=== PATIENT | male | born 1955 | race Caucasian/White ===

== ENCOUNTER 2020-12-03 18:18 | Observation (INO) ==
[2020-12-03] MEDS ORDERED: Aspirin 325 MG TABLET PO ONE (18:32)
[2020-12-03 18:48] LABS: Basophils # 0.1 K/mcL (0.0-0.2); Basophils % 0.7 %; Eosinophils # 0.4 K/mcL (0.0-0.6); Eosinophils % 3.4 %; Hematocrit 53.1 % (37.5-50.1); Hemoglobin 17.7 g/dL (12.9-16.9); Immature Granulocytes % 0.5 % (0-4); Lymphocytes # 3.5 K/mcL (0.6-4.6); Lymphocytes % 30.2 %; Mean Corpuscular HGB Conc 33.3 g/dL (31.6-35.5); Mean Corpuscular Hemoglobin 29.4 pg (28.0-33.3); Mean Corpuscular Volume 88.1 fL (83.0-100.0); Mean Platelet Volume 10.3 fL (9.4-12.4); Monocytes % 8.8 %; Neutrophils # 6.5 K/mcL (1.6-8.9); Platelet Count 256 K/mcL (140-400); Red Blood Count 6.03 M/mcL (4.19-5.50); Segmented Neutrophils % 56.4 %; White Blood Count 11.5 K/mcL (4.3-11.1)
[2020-12-03 18:49] LABS: INR 1.1; Prothrombin Time 12.2 Seconds (9.4-12.1)
[2020-12-03] MEDS ORDERED: Isovue-370 500 ML BOTTLE IVP ONE ×2 (18:49)
[2020-12-03 19:03] LABS: Alanine Aminotransferase 21 Units/L (7-52); Albumin 4.4 g/dL (3.5-5.7); Albumin/Globulin Ratio 1.3 (1.1-2.2); Alkaline Phosphatase 66 Units/L (34-104); Aspartate Amino Transferase 20 Units/L (13-39); BUN/Creatinine Ratio 18 (6-26); Bilirubin,Total 0.4 mg/dL (0.3-1.0); Blood Urea Nitrogen 21 mg/dL (8-23); Calcium 9.2 mg/dL (8.6-10.3); Carbon Dioxide 28 mEq/L (23-29); Chloride 103 mEq/L (98-107); Globulin 3.5 g/dL (2.4-3.5); Glucose 99 mg/dL (70-105); Osmolality,Calculated 289 (280-300); Potassium 4.3 mEq/L (3.5-5.1); Sodium 138 mEq/L (136-145); Total Protein 7.9 g/dL (6.4-8.9); Troponin I < 0.03 ng/mL (< 0.04); eGFR For African Americans > 60 (> 60); eGFR For Non-African Americans > 60 (> 60)
[2020-12-03] MEDS ORDERED: Perflutren Lipid Microsphere 1.3 ML in 0.9 % Sodium Chloride 8.7 ML IVP PRN (23:21)
[2020-12-03] MEDS ORDERED: *HR* Labetalol 20 MG/4 ML SYRINGE IVP ONE (23:25)
[2020-12-03] MEDS ORDERED: Acetaminophen 325 MG TABLET PO PRN (23:33)
[2020-12-03] MEDS ORDERED: Ondansetron 4 MG/2 ML VIAL IVP PRN (23:33)
[2020-12-03] MEDS ORDERED: Naloxone 0.4 MG/ML INJ IVP PRN (23:33)
[2020-12-04 01:13] LABS: Hematocrit 50.5 % (37.5-50.1); Hemoglobin 16.4 g/dL (12.9-16.9); Mean Corpuscular HGB Conc 32.5 g/dL (31.6-35.5); Mean Corpuscular Hemoglobin 28.6 pg (28.0-33.3); Mean Corpuscular Volume 88.1 fL (83.0-100.0); Mean Platelet Volume 10.1 fL (9.4-12.4); Platelet Count 233 K/mcL (140-400); Red Blood Count 5.73 M/mcL (4.19-5.50); Red Cell Distribution Width 12.8 % (11.5-14.5); White Blood Count 10.3 K/mcL (4.3-11.1)
[2020-12-04 01:17] LABS: INR 1.1; Prothrombin Time 12.8 Seconds (9.4-12.1)
[2020-12-04 01:19] LABS: Activated Partial Thrombo Time 30.6 Seconds (26.0-36.0)
[2020-12-04 01:32] LABS: BUN/Creatinine Ratio 18 (6-26); Blood Urea Nitrogen 19 mg/dL (8-23); Calcium 8.9 mg/dL (8.6-10.3); Carbon Dioxide 24 mEq/L (23-29); Chloride 104 mEq/L (98-107); Chol/HDL Ratio 5.2 (0-4.9); Cholesterol 187 mg/dL (< 200); Glucose 180 mg/dL (70-105); HDL Cholesterol 36 mg/dL (40-59); LDL Cholesterol,Calculated 132 mg/dL (< 100); Magnesium 2.1 mg/dL (1.6-2.6); Osmolality,Calculated 291 (280-300); Potassium 3.7 mEq/L (3.5-5.1); Sodium 137 mEq/L (136-145); Triglycerides 97 mg/dL (< 150); eGFR For African Americans > 60 (> 60); eGFR For Non-African Americans > 60 (> 60)
[2020-12-04 04:08] LABS: Estimated Average Glucose 134 mg/dl; Hemoglobin A1C 6.3 %
[2020-12-04] MEDS: *HR* Heparin 5,000 UNIT/ML VIAL SQ SCH ×2 (05:30→13:47)
[2020-12-04 05:52] LABS: Bilirubin,Urine Negative (Negative); Blood,Urine Negative (Negative); Clarity,Urine Clear (Clear); Color,Urine Light-Yellow (Yellow); Glucose,Urine (UA) Normal (Normal); Ketones,Urine Negative (Negative); Leukocyte Esterase,Urine Negative (Negative); Nitrite,Urine Negative (Negative); PH,Urine 6.5 pH Units (5.0-8.0); Protein,Urine 50 mg/dL (Neg-Trace); RBC,Urine 0-3 per hpf (0-3); Specific Gravity,Urine > 1.030 (1.010-1.025); Urobilinogen,Urine Normal (Normal); WBC,Urine 0-3 per hpf (0-3)
[2020-12-04] MEDS ORDERED: Aspirin Enteric Coated 81 MG Tablet PO SCH (09:00)
[2020-12-04] MEDS ORDERED: lisinopriL 5 MG TABLET PO SCH (10:15)
[2020-12-04] MEDS ORDERED: Regadenoson 0.4 MG/5 ML SYRINGE IVP ONE (10:27)
[2020-12-04 14:18] VITALS: BP 137/93
== END 2020-12-04 14:59 | disposition home or self-care (01) ==
LOC: 3BNU 18:18 → EMEROOARM 18:18 → SUATTDRO 22:45 → 3BNU 22:49
PROVIDERS: ADMIT Internal Medicine; ATTEND Internal Medicine

== ENCOUNTER 2020-12-08 06:15 | Inpatient (IN) ==
[2020-12-08] MEDS ORDERED: Vancomycin 1,250 MG/262.5 ML IV.SOLN IVPB ONE ×2 (06:36→22:30)
[2020-12-08] MEDS ORDERED: CeFAZolin Syr 2,000MG/20 ML 2,000 MG/20 ML SYRINGE IVPB ONE (06:36)
[2020-12-08] MEDS ORDERED: Ringers Solution, Lactated 1,000 ML IVC SCH (06:45)
[2020-12-08] MEDS ORDERED: *HR* Propofol 200 MG/20 ML VIAL IVP ONE ×2 (07:03→07:04)
[2020-12-08] MEDS ORDERED: Lidocaine -MPF 2% 2 ML VIAL ONE ×2 (07:07→12:46)
[2020-12-08] MEDS ORDERED: Acetaminophen IV 1,000 MG/100 ML BAG IVPB ONE ×2 (07:15→11:08)
[2020-12-08] MEDS ORDERED: Famotidine 20 MG/2 ML VIAL IVP ONE (07:15)
[2020-12-08] MEDS ORDERED: Promethazine 6.25 MG in Water for inj. (sterile) 20 ML IVPB PRN (07:16)
[2020-12-08] MEDS ORDERED: Ondansetron 4 MG/2 ML VIAL IVP PRN ×2 (07:16→14:03)
[2020-12-08] MEDS ORDERED: *HR* OxyCODONE Immed Rel 5 MG TABLET PO PRN ×2 (07:16→14:03)
[2020-12-08] MEDS ORDERED: *HR* FentaNYL (PF) 100 MCG/2 ML VIAL IVP PRN (07:16)
[2020-12-08] MEDS ORDERED: Albuterol 2.5 MG/3 ML NEBULIZER IH PRN (07:16)
[2020-12-08] MEDS ORDERED: *HR* Labetalol 20 MG/4 ML SYRINGE IVP PRN ×2 (07:16→14:03)
[2020-12-08] MEDS ORDERED: *HR* FentaNYL (PF) 100 MCG/2 ML VIAL ONE ×2 (08:40→11:12)
[2020-12-08] MEDS ORDERED: *HR* Phenylephrine 10 MG/ML VIAL ONE (08:42)
[2020-12-08] MEDS ORDERED: Vancomycin 1,000 MG, Sodium Chloride IRRigation 1,000 ML IR ONE (08:45)
[2020-12-08] MEDS ORDERED: NiCARdipine 2.5 MG/10 ML Syringe IVPB ONE (09:16)
[2020-12-08] MEDS ORDERED: *HR* Vasopressin 20 UNIT/ML VIAL ONE (09:16)
[2020-12-08] MEDS ORDERED: Heparin 1,000 UNITS/500 mL 1,500 ML ONE (09:17)
[2020-12-08] MEDS ORDERED: Heparin 1,000 UNITS/500 mL 500 ML ONE ×2 (09:19→10:51)
[2020-12-08] MEDS ORDERED: *HR* Midazolam HCl 2 MG/2 ML VIAL ONE (09:23)
[2020-12-08] MEDS ORDERED: Sugammadex Sodium 200 MG/2 ML VIAL IV ONE (12:31)
[2020-12-08] MEDS ORDERED: *HR* HYDROcodone/Acet 5/325 mg TABLET PO PRN (14:03)
[2020-12-08] MEDS ORDERED: Naloxone 0.4 MG/ML INJ IVP PRN (14:03)
[2020-12-08] MEDS ORDERED: 0.9 % Sodium Chloride 1,000 ML IVC SCH (14:03)
[2020-12-08] MEDS ORDERED: Acetaminophen 325 MG TABLET PO PRN (14:03)
[2020-12-08] MEDS: CeFAZolin 2 GM/120 ML BAG IVPB SCH (17:36)
[2020-12-08] MEDS: *HR* Metoprolol 5 MG/5 ML VIAL IVP SCH (17:37)
[2020-12-09] MEDS: *HR* Metoprolol 5 MG/5 ML VIAL IVP SCH ×2 (00:48→06:26)
[2020-12-09] MEDS: CeFAZolin 2 GM/120 ML BAG IVPB SCH (02:59)
[2020-12-09 04:47] LABS: Basophils # 0.1 K/mcL (0.0-0.2); Basophils % 0.4 %; Eosinophils # 0.2 K/mcL (0.0-0.6); Eosinophils % 1.1 %; Hematocrit 45.4 % (37.5-50.1); Hemoglobin 15.3 g/dL (12.9-16.9); Immature Granulocytes % 0.3 % (0-4); Lymphocytes # 1.7 K/mcL (0.6-4.6); Lymphocytes % 11.4 %; Mean Corpuscular HGB Conc 33.7 g/dL (31.6-35.5); Mean Corpuscular Hemoglobin 30.2 pg (28.0-33.3); Mean Corpuscular Volume 89.7 fL (83.0-100.0); Mean Platelet Volume 10.5 fL (9.4-12.4); Monocytes # 1.1 K/mcL (0.0-1.3); Monocytes % 7.7 %; Neutrophils # 11.7 K/mcL (1.6-8.9); Platelet Count 195 K/mcL (140-400); Red Blood Count 5.06 M/mcL (4.19-5.50); Red Cell Distribution Width 12.6 % (11.5-14.5); Segmented Neutrophils % 79.1 %; White Blood Count 14.8 K/mcL (4.3-11.1)
[2020-12-09 04:57] LABS: BUN/Creatinine Ratio 12 (6-26); Blood Urea Nitrogen 14 mg/dL (8-23); Calcium 8.6 mg/dL (8.6-10.3); Carbon Dioxide 26 mEq/L (23-29); Chloride 99 mEq/L (98-107); Glucose 125 mg/dL (70-105); Osmolality,Calculated 272 (280-300); Potassium 4.8 mEq/L (3.5-5.1); Sodium 130 mEq/L (136-145); eGFR For African Americans > 60 (> 60); eGFR For Non-African Americans > 60 (> 60)
[2020-12-09] MEDS ORDERED: *HR* Heparin 5,000 UNIT/ML VIAL SQ SCH ×2 (06:00)
[2020-12-09 07:33] VITALS: BP 116/88
[2020-12-09] MEDS ORDERED: Loratadine/Pseudophed (12 HR) 1 EACH TABLET PO SCH (09:00)
[2020-12-09] MEDS ORDERED: lisinopriL 5 MG TABLET PO SCH (09:00)
[2020-12-09] MEDS ORDERED: Aspirin Enteric Coated 81 MG Tablet PO SCH (09:00)
[2020-12-09] MEDS ORDERED: FLU Vac QV 20-21 (6Month+)/PF 0.5 ML SYRINGE IM ONE (10:52)
== END 2020-12-09 11:52 | disposition home or self-care (01) | DRG 269 ==
LOC: SAMDAY 06:15 → 2NNU 10:00 → EDSDCBED 16:00 → SAMDAY 12-09 11:52 → 2NNU 12-22 15:29
PROVIDERS: ADMIT Surgery; ATTEND Surgery